=== PATIENT | female | born 1960 | race Caucasian/White ===

== ENCOUNTER → 2020-09-28 16:03 | Outpatient (CLI) | payer OTHER, MEDICAID, SELFPAY ==
--- NOTE | 2020-09-28 | DI.MG.S_ITS ---
BILATERAL DIGITAL SCREENING MAMMOGRAM 3D/2D WITH CAD: 09/28/2020 CLINICAL: Routine screening. Family history of breast cancer. Comparison is made to exams dated: 08/07/2017 mammogram, 03/27/2016 mammogram, and 11/24/2014 mammogram - [facility]. The tissue of both breasts is heterogeneously dense. This may lower the sensitivity of mammography. Current study was also evaluated with a Computer Aided Detection (CAD) system. There is a possible new architectural distortion in the right breast at 11 o'clock posterior depth. There also is an oval asymmetry with an obscured and circumscribed margin in the right breast middle depth superior region seen on the mediolateral oblique view only. Additionally, there is an oval asymmetry with an obscured margin in the right breast posterior depth superior region seen on the mediolateral oblique view only. No other significant masses, calcifications, or other findings are seen in either breast. IMPRESSION: INCOMPLETE: NEEDS ADDITIONAL IMAGING EVALUATION The possible new architectural distortion in the right breast at 11 o'clock posterior depth is indeterminate. The oval asymmetry in the right breast middle depth superior region seen on the mediolateral oblique view only is indeterminate. The oval asymmetry in the right breast posterior depth superior region seen on the mediolateral oblique view only resembles a lymph node and is indeterminate. Additional views with possible ultrasound are recommended. This exam was interpreted at Station ID: [id number]. NOTE: For mammograms, a report in lay terms will be sent to the patient. Approximately 15% of breast malignancies will not be visualized mammographically. In the management of a palpable breast mass, a negative mammogram must not discourage biopsy of a clinically suspicious lesion. Electronically Signed By: Ilene christensen/:09/28/2020 16:50:23 letter sent: Additional Imaging Needed ACR BI-RADS Category 0: Incomplete 3340F
== END ==
PROVIDERS: Referring Provider Family Medicine; Visit Provider Family Medicine
DX: Z12.31 Encounter for screening mammogram for malignant neoplasm of breast (principal); Z80.3 Family history of malignant neoplasm of breast
CPT/HCPCS: 77063; 77067

== ENCOUNTER → 2020-10-16 14:14 | Outpatient (CLI) | payer OTHER, MEDICAID, SELFPAY ==
--- NOTE | 2020-10-16 | DI.US.S_ITS ---
LIMITED ULTRASOUND OF RIGHT BREAST: 10/16/2020 CLINICAL: Patient returns today to evaluate focal asymmetries in the right breast. Comparison is made to exams dated: 10/16/2020 mammogram, 09/28/2020 mammogram, 08/07/2017 mammogram, 03/27/2016 mammogram, 11/24/2014 mammogram, and 07/16/2011 mammogram - [facility]. Color flow and real-time ultrasound of the right breast upper outer quadrant were performed on the areas of interest. There is an irregular area of probable fibroglandular tissue with indistinct margins in the right breast at 11 o'clock posterior depth. This irregular area of fibroglandular tissue is of mixed echogenicity. Color flow imaging demonstrates that there is no increase in vascularity. Elsewhere no discrete cystic or solid mass is identified in the upper outer quadrant of the right breast to correlate with patient's mammographic findings. IMPRESSION: PROBABLY BENIGN The irregular area of probable fibroglandular tissue in the right breast is probably benign. Follow-up mammogram and ultrasound in 6 months are recommended. A follow-up mammogram and possible ultrasound in 6 months are recommended to demonstrate stability of the mammographic findings. This exam was interpreted at Station ID: [id number]. Electronically Signed By: Zeke hathaway/:10/18/2020 08:03:11 letter sent: Followup Recommended Ultrasound BI-RADS: 3 Probably benign
--- NOTE | 2020-10-16 | DI.MG.S_ITS ---
UNILATERAL RIGHT DIGITAL DIAGNOSTIC MAMMOGRAM 3D/2D WITH ADDITIONAL VIEWS: 10/16/2020 CLINICAL: Additional evaluation requested from prior study. Comparison is made to exams dated: 09/28/2020 mammogram, 08/07/2017 mammogram, and 03/27/2016 mammogram - [facility]. The tissue of right breast is heterogeneously dense. This may lower the sensitivity of mammography. There is irregular equal density architectural distortion with an indistinct margin in the right breast at 11 o'clock posterior depth. This is less prominent. There also is an oval equal density asymmetry with an indistinct and circumscribed margin in the right breast posterior depth superior region seen on the mediolateral oblique view only. This is less prominent. Additionally, there is an oval equal density asymmetry with an indistinct and circumscribed margin in the right breast posterior depth superior region seen on the mediolateral oblique view only. This is less prominent. No other significant masses or calcifications are seen in the breast. IMPRESSION: INCOMPLETE: NEEDS ADDITIONAL IMAGING EVALUATION The irregular equal density architectural distortion in the right breast at 11 o'clock posterior depth is indeterminate. An ultrasound is recommended. The oval equal density asymmetry in the right breast posterior depth superior region seen on the mediolateral oblique view only is indeterminate. An ultrasound is recommended. The oval equal density asymmetry in the right breast posterior depth superior region seen on the mediolateral oblique view only is indeterminate. An ultrasound is recommended. Ultrasound will be performed immediately following the current exam. This exam was interpreted at Station ID: [id number]. NOTE: For mammograms, a report in lay terms will be sent to the patient. Approximately 15% of breast malignancies will not be visualized mammographically. In the management of a palpable breast mass, a negative mammogram must not discourage biopsy of a clinically suspicious lesion. Electronically Signed By: Zeke Kelly M.D. ddp/:10/16/2020 14:56:30 ACR BI-RADS Category 0: Incomplete 3340F
== END ==
PROVIDERS: PCP Family Medicine; Referring Provider Family Medicine; Visit Provider Family Medicine
DX: R92.8 Other abnormal and inconclusive findings on diagnostic imaging of breast (principal); N64.89 Other specified disorders of breast
CPT/HCPCS: 76642; 77065; G0279

== ENCOUNTER → 2021-04-19 09:32 | Outpatient (CLI) | payer OTHER, MEDICAID, SELFPAY ==
--- NOTE | 2021-04-19 09:33 | DI.MG.S_ITS ---
UNILATERAL RIGHT DIGITAL DIAGNOSTIC MAMMOGRAM 3D/2D SHORT-TERM FOLLOW-UP: 04/19/2021 CLINICAL: Short term follow up of the right breast. Comparison is made to exams dated: 10/16/2020 mammogram, 10/16/2020 ultrasound, 09/28/2020 mammogram, and 08/07/2017 mammogram - [facility]. The tissue of right breast is heterogeneously dense. This may lower the sensitivity of mammography. Prior area of architectural distortion is no longer seen in the right breast at 11 o'clock. There is a 1.4 cm equal density asymmetry in the right breast at 10 o'clock posterior depth. This is seen in additional views. This is more prominent. There also is a 1.1 cm oval asymmetry in the right breast posterior depth lateral region seen on the craniocaudal view only. This is seen in additional views. This is more prominent. No other significant masses or calcifications are seen in the breast. IMPRESSION: INCOMPLETE: NEEDS ADDITIONAL IMAGING EVALUATION The 1.4 cm equal density asymmetry in the right breast at 10 o'clock posterior depth is indeterminate. An ultrasound is recommended. The 1.1 cm oval asymmetry in the right breast posterior depth lateral region seen on the craniocaudal view only is indeterminate. An ultrasound is recommended. Resolution of architectural distortion on prior screening mammography with additional views. Ultrasound evaluation to confirm resolution is recommended and was performed immediately following this exam. This exam was interpreted at Station ID: [id number]. NOTE: For mammograms, a report in lay terms will be sent to the patient. Approximately 15% of breast malignancies will not be visualized mammographically. In the management of a palpable breast mass, a negative mammogram must not discourage biopsy of a clinically suspicious lesion. Electronically Signed By: Ilene christensen/:04/19/2021 10:10:55 ACR BI-RADS Category 0: Incomplete 3340F
--- NOTE | 2021-04-19 09:33 | DI.US.S_ITS ---
LIMITED ULTRASOUND OF RIGHT BREAST: 04/19/2021 CLINICAL: Patient returns for a 6 month follow up of the right breast. Comparison is made to exams dated: 04/19/2021 mammogram, 10/16/2020 ultrasound, 10/16/2020 mammogram, 09/28/2020 mammogram, 08/07/2017 mammogram, and 03/27/2016 mammogram - [facility]. Ultrasound of the right breast 10-11 o'clock region was performed. There are at least two oval areas of benign fibroglandular tissue in the right axillary tail. These correlate in size and shape with mammography findings. Color flow imaging demonstrates that there is no vascularity present. No finding to correspond to the patient's resolved mammographic abnormality of architectural distortion. IMPRESSION: BENIGN The multiple oval areas of fibroglandular tissue are benign. There is no abnormality seen in the right breast to correspond with the architectural distortion at 11 o'clock which is consistent with fibrosis. A follow-up right mammogram in 6 months is recommended to demonstrate stability of the tissue pattern.. Findings and recommendations were conveyed to the patient at time of exam. This exam was interpreted at Station ID: [id number]. Electronically Signed By: Ilene christensen/:04/19/2021 11:34:42 letter sent: Followup Recommended Ultrasound BI-RADS: 2 Benign
== END ==
PROVIDERS: PCP Physician Assistant Medical; Referring Provider Obstetrics & Gynecology; Visit Provider Obstetrics & Gynecology
DX: R92.8 Other abnormal and inconclusive findings on diagnostic imaging of breast (principal); N64.89 Other specified disorders of breast
CPT/HCPCS: 76642; 77065; G0279

== ENCOUNTER → 2021-10-23 08:43 | Outpatient (CLI) | payer OTHER, MEDICAID, SELFPAY ==
[2021-10-23 19:52] LABS: Alanine Aminotransferase 15 IU/L (<35); Albumin 4.2 g/dL (3.5-5.0); Albumin Globulin Ratio 1.6 (1.0-2.8); Alkaline Phosphatase 74 U/L (38-126); Aspartate Aminotransferase 32 IU/L (14-36); BUN Creatinine Ratio 15.9 (6-22); Bilirubin Total 0.8 mg/dL (0.2-1.3); Blood Urea Nitrogen 10 mg/dL (7-17); C-Reactive Protein Quant < 0.5 mg/dL (<1.0); Calcium 9.2 mg/dL (8.4-10.2); Carbon Dioxide 26 mmol/L (22-32); Chloride 108 mmol/L (98-107); Cholesterol 218 mg/dL (140-199); Estimated Glomerular Filt Rate > 60 mL/min (>60); Globulin 2.7 g/dL (1.7-4.1); Glucose 91 mg/dL (80-110); HDL Cholesterol 93 mg/dL (40-60); HEMOLYSIS < 15 (0-50); LDL Cholesterol Calculated 111 mg/dL (<100); Potassium 4.1 mmol/L (3.4-5.1); Sodium 139 mmol/L (137-145); Total Protein 6.9 g/dL (6.3-8.2); Triglycerides 68 mg/dL (35-150)
[2021-10-23 19:57] LABS: Add Manual Diff / Slide Review NO; Basophils Absolute Auto 0 /uL (0-100); Basophils Percent Auto 0.8 % (0-2); Eosinophils Absolute Auto 200 /uL (0-450); Eosinophils Percent Auto 4.1 % (2-4); Hematocrit 39.5 % (36-46); Hemoglobin 13.2 g/dL (12.0-16.0); Lymphocytes Absolute Auto 1500 /uL (1100-4500); Lymphocytes Percent Auto 37.5 % (25-40); Mean Corpuscular HGB Conc 33.3 % (30-36); Mean Corpuscular Hemoglobin 30.8 PG (26-34); Mean Corpuscular Volume 92.4 fL (80-100); Monocytes Absolute Auto 400 /uL (0-900); Monocytes Percent Auto 9.9 % (3-14); Neutrophils Absolute Auto 1800 /uL (1500-7000); Neutrophils Percent Auto 47.7 % (50-75); Platelet Count 227 X10^3/uL (150-400); Red Blood Cell Count 4.28 X10^6/uL (4.0-5.2); Red Cell Distribution Width 13.3 % (11.6-14.8); White Blood Cell Count 3.9 X10^3/uL (4.5-11.0)
[2021-10-23 20:31] LABS: TSH w/ Reflex to FT4 2.86 uIU/mL (0.47-4.68)
[2021-10-23 20:35] LABS: Erythrocyte Sedimentation Rate 5 MM/HR (0-20)
== END ==
PROVIDERS: PCP Physician Assistant Medical; Visit Provider Physician Assistant Medical
DX: M79.641 Pain in right hand (principal); M79.642 Pain in left hand; Z11.51 Encounter for screening for human papillomavirus (HPV); Z12.11 Encounter for screening for malignant neoplasm of colon; Z12.4 Encounter for screening for malignant neoplasm of cervix; Z12.39 Encounter for other screening for malignant neoplasm of breast
CPT/HCPCS: 80053; 80061; 84443; 85025; 85651; 86140

== ENCOUNTER → 2021-10-29 13:49 | Outpatient (CLI) | payer OTHER, MEDICAID, SELFPAY ==
[2021-10-30 06:17] LABS: Fecal Immunochemical Test Negative (Negative)
== END ==
PROVIDERS: PCP Physician Assistant Medical; Visit Provider Physician Assistant Medical
DX: Z11.51 Encounter for screening for human papillomavirus (HPV) (principal); Z12.11 Encounter for screening for malignant neoplasm of colon; Z12.39 Encounter for other screening for malignant neoplasm of breast; Z12.4 Encounter for screening for malignant neoplasm of cervix
CPT/HCPCS: 82274

== ENCOUNTER → 2022-01-01 10:10 | Outpatient (CLI) | payer OTHER, MEDICAID, SELFPAY ==
--- NOTE | 2022-01-01 10:18 | DI.MG.S_ITS ---
BILATERAL DIGITAL DIAGNOSTIC MAMMOGRAM 3D/2D SHORT-TERM FOLLOW-UP: 01/01/2022 CLINICAL: Short term follow up of the right breast, due for bilateral imaging. Comparison is made to exams dated: 04/19/2021 mammogram, 10/16/2020 mammogram, and 09/28/2020 mammogram - [facility]. The tissue of both breasts is heterogeneously dense. This may lower the sensitivity of mammography. There is a cluster of round equal density asymmetries in the right breast at 10 o'clock posterior depth. This is not significantly changed and was not seen on the prior ultrasound. There also is possible architectural distortion in the right breast at 11 o'clock posterior depth. This is less prominent. No other significant masses, calcifications, or other findings are seen in either breast. IMPRESSION: PROBABLY BENIGN The cluster of round equal density asymmetries in the right breast at 10 o'clock posterior depth is stable and is probably benign. The possible architectural distortion in the right breast at 11 o'clock posterior depth has become less prominent and previously had no sonographic correlate. It is probably benign. A follow-up right mammogram in 6 months is recommended to demonstrate continued stability. Based on Tyrer-Cuzick model (a risk assessment model), the patient's lifetime risk is 21.0% and her 10 year risk is 8.9%. If a patient has an elevated risk, a more comprehensive evaluation should be considered and/or a referral to a genetic counselor. The [place] [employer], [employer], and NCCN Guidelines advise the consideration of Breast MRI as an adjunct to screening mammography in patients whose Lifetime risk to develop breast cancer is 20% or higher. This exam was interpreted at Station ID: [id number]. NOTE: For mammograms, a report in lay terms will be sent to the patient. Approximately 15% of breast malignancies will not be visualized mammographically. In the management of a palpable breast mass, a negative mammogram must not discourage biopsy of a clinically suspicious lesion. Electronically Signed By: Ilene christensen/:01/01/2022 14:30:58 letter sent: Followup Recommended ACR BI-RADS Category 3: Probably benign [id number]
== END ==
PROVIDERS: PCP Physician Assistant Medical; Referring Provider Physician Assistant Medical; Visit Provider Physician Assistant Medical
DX: R92.8 Other abnormal and inconclusive findings on diagnostic imaging of breast (principal); N64.89 Other specified disorders of breast
CPT/HCPCS: 77066; G0279

== ENCOUNTER → 2022-10-31 09:16 | Outpatient (CLI) | payer OTHER, MEDICAID, SELFPAY ==
--- NOTE | 2022-10-31 09:18 | DI.MG.S_ITS ---
BILATERAL DIGITAL DIAGNOSTIC MAMMOGRAM 3D/2D: 10/31/2022 CLINICAL: Patient returns for a 6 month follow up of the right breast, due for bilateral exam. Comparison is made to exams dated: 01/01/2022 mammogram, 09/28/2020 mammogram, and 08/07/2017 mammogram - [facility]. Both breasts are heterogeneously dense, which may obscure small masses (category c / 51-75% glandular tissue). There is a cluster of round equal density asymmetries in the right breast at 10 o'clock posterior depth. This is not significantly changed and was not seen on the prior ultrasound. The possible architectural distortion in the right breast at 11 o'clock posterior depth is no longer seen and most likely is fibroglandular tissue. This was not seen on the prior ultrasound. No other significant masses, calcifications, or other findings are seen in either breast. IMPRESSION: BENIGN Previously described findings have demonstrated two years of stability and is consistent with a benign process. There is no mammographic evidence of malignancy. A 1 year screening mammogram is recommended. Findings and recommendations were conveyed to the patient during today's evaluation. Based on Tyrer-Cuzick model (a risk assessment model), the patient's lifetime risk is 20.5% and her 10 year risk is 9.0%. If a patient has an elevated risk, a more comprehensive evaluation should be considered and/or a referral to a genetic counselor. The [place] [employer], [employer] [place], and NCCN Guidelines advise the consideration of Breast MRI as an adjunct to screening mammography in patients whose Lifetime risk to develop breast cancer is 20% or higher. This exam was interpreted at Station ID: [id number]. NOTE: For mammograms, a report in lay terms will be sent to the patient. Approximately 15% of breast malignancies will not be visualized mammographically. In the management of a palpable breast mass, a negative mammogram must not discourage biopsy of a clinically suspicious lesion. Electronically Signed By: Roland Perez M.D. aty/:10/31/2022 11:38:17 letter sent: Normal Exam ACR BI-RADS Category 2: Benign Finding(s) 3342F
== END ==
PROVIDERS: PCP Physician Assistant Medical; Referring Provider Physician Assistant Medical; Visit Provider Physician Assistant Medical
DX: R92.8 Other abnormal and inconclusive findings on diagnostic imaging of breast (principal)
CPT/HCPCS: 77066; G0279

== ENCOUNTER → 2022-11-05 08:33 | Outpatient (CLI) | payer OTHER, MEDICAID, SELFPAY ==
[2022-11-05 19:58] LABS: Add Manual Diff / Slide Review NO; Basophils Absolute Auto 0 /uL (0-100); Basophils Percent Auto 1.1 % (0-2); Eosinophils Absolute Auto 100 /uL (0-450); Eosinophils Percent Auto 2.9 % (2-4); Hematocrit 40.7 % (36-46); Hemoglobin 13.7 g/dL (12.0-16.0); Lymphocytes Absolute Auto 1500 /uL (1100-4500); Lymphocytes Percent Auto 43.2 % (25-40); Mean Corpuscular HGB Conc 33.8 % (30-36); Mean Corpuscular Hemoglobin 30.9 PG (26-34); Mean Corpuscular Volume 91.4 fL (80-100); Monocytes Absolute Auto 400 /uL (0-900); Monocytes Percent Auto 11.5 % (3-14); Neutrophils Absolute Auto 1400 /uL (1500-7000); Neutrophils Percent Auto 41.3 % (50-75); Platelet Count 228 X10^3/uL (150-400); Red Blood Cell Count 4.45 X10^6/uL (4.0-5.2); Red Cell Distribution Width 13.3 % (11.6-14.8); White Blood Cell Count 3.4 X10^3/uL (4.5-11.0)
[2022-11-05 20:00] LABS: Alanine Aminotransferase 18 IU/L (<35); Albumin 4.2 g/dL (3.5-5.0); Albumin Globulin Ratio 1.5 (1.0-2.8); Alkaline Phosphatase 76 U/L (38-126); Aspartate Aminotransferase 30 IU/L (14-36); Bilirubin Total 0.8 mg/dL (0.2-1.3); Blood Urea Nitrogen 11 mg/dL (7-17); Calcium 9.2 mg/dL (8.4-10.2); Carbon Dioxide 27 mmol/L (22-32); Chloride 103 mmol/L (98-107); Cholesterol 220 mg/dL (140-199); Estimated Glomerular Filt Rate > 60 mL/min (>60); Globulin 2.8 g/dL (1.7-4.1); Glucose 93 mg/dL (80-110); HDL Cholesterol 89 mg/dL (40-60); HEMOLYSIS < 15 (0-50); LDL Cholesterol Calculated 121 mg/dL (<100); Potassium 4.3 mmol/L (3.4-5.1); Sodium 137 mmol/L (137-145); Triglycerides 48 mg/dL (35-150)
[2022-11-05 20:29] LABS: TSH w/ Reflex to FT4 2.33 uIU/mL (0.47-4.68)
== END ==
PROVIDERS: PCP Physician Assistant Medical; Visit Provider Physician Assistant Medical
DX: Z12.11 Encounter for screening for malignant neoplasm of colon (principal); Z12.12 Encounter for screening for malignant neoplasm of rectum; Z13.29 Encounter for screening for other suspected endocrine disorder
CPT/HCPCS: 80053; 80061; 84443; 85025

== ENCOUNTER → 2022-11-17 09:07 | Outpatient (CLI) | payer OTHER, MEDICAID, SELFPAY ==
[2022-11-19 13:39] LABS: Fecal Immunochemical Test Negative (Negative)
== END ==
PROVIDERS: PCP Physician Assistant Medical; Visit Provider Physician Assistant Medical
DX: Z12.11 Encounter for screening for malignant neoplasm of colon (principal); Z12.12 Encounter for screening for malignant neoplasm of rectum; Z13.29 Encounter for screening for other suspected endocrine disorder
CPT/HCPCS: 82274

== ENCOUNTER 2022-12-26 11:28 | Day surgery (SDC) | payer OTHER, MEDICAID, SELFPAY ==
--- NOTE | 2022-12-26 | PATH_ITS ---
[facility] Accession Number: [id number] No. of containers..01 Tissue . 01 Material submitted: . cecum - CECAL POLYP . 01 Diagnosis: Cecum, Polyp: Sessile serrated adenoma. MRV 01/01/2023 1557 Local . 01 Electronically signed: . Sarah Carreon MD, Pathologist NPI- [id number] . 01 Gross description: . Received in formalin labeled with the patient's name and cecal polyp, and consists of two 0.2 cm biopsies, submitted entirely in A1. ([id number]) /VAMSI 12/30/2022 1158 Local . 01 Pathologist provided ICD-10: D12.0 . 01 CPT . 265295 Specimen Comment: A courtesy copy of this report has been sent to [facility] Performed at: 01 [facility] [address] [place] [address], [place], [place] [id number] MD Zeke Ken MD Phone: [phone]
[2022-12-26 11:43] VITALS: BP 108/67; PULSE 70; RESP 17; TEMP 36.7; O2SAT 100; BMI 22.4
[2022-12-26] MEDS: LACTATED RINGERS 1,000 ML 125 ML IV (11:53)
--- NOTE | 2022-12-26 14:22 | PM.HP.1 ---
History of Present Illness History of Present Illness Date Patient Seen: 12/26/22 Time Patient Seen: 14:22 Chief complaint: Screening Colonoscopy Narrative: 62-year-old female presenting for her 2nd screening colonoscopy. Her 1st 1 was about 10 years ago was done here at [facility] to her recollection there were no polyps. She has no family history of colon cancer in no concerning symptoms. [facility] Medical History (Updated 11/26/22 @ 16:28 by Sarah Sinclair PA-C) Herpes zoster without complication Screening for breast cancer Family History (Updated 11/15/15 @ 00:00 by Conversion Provider) Brother Age: 57 Overweight Father Age: 82 Heart disease Hypertension High cholesterol Mother Age: 81 Sciatica Social History household members: significant other Smoking Status: Former smoker alcohol intake: current Meds Home Medications and Allergies Home Medications Medication Instructions Recorded Confirmed Type metronidazole 0.75 % topical gel 0.75 % topical BID #45 mL 02/13/16 12/26/22 Rx scopolamine base 1 mg over 3 days 1 patch transdermal Q72H #6 patches 10/09/21 12/26/22 Rx transdermal patch (Transderm-Scop) Allergies Allergy/AdvReac Type Severity Reaction Status Date / Time No Known Drug Allergies Allergy Verified 11/05/22 08:23 Exam Vital Signs (past 8 hours): - 12/26/22 11:43 Temperature 98.1 F Pulse Rate 70 Respiratory Rate 17 Blood Pressure 108/67 Pulse Oximetry 100 Oxygen Delivery Method Room Air Oxygen Delivery Method Room Air Const General: cooperative, healthy appearing and comfortable Nutritional Appearance: thin HENMT Head: normal to inspection Eyes General: appearance normal, both eyes and all related structures Resp Effort & Inspection: normal respiratory effort and able to speak in complete sentences GI Palpation: soft and No tender Assessment & Plan Assessment and plan (1) Screening for colorectal cancer: Status: Acute Assessment & Plan narrative: Presents today for screening colonoscopy I discussed the risks benefits and alternatives including but not limited to perforation of the colon and an incomplete exam she fully understands these risks and would like to proceed.
[2022-12-26 15:20] VITALS: BP 102/62; PULSE 78; RESP 20; TEMP 36.4; O2SAT 100
[2022-12-26 15:25] VITALS: BP 108/63; PULSE 74; RESP 22; O2SAT 99
[2022-12-26 15:29] VITALS: BP 102/72; PULSE 66; RESP 20; O2SAT 99
[2022-12-26 15:30] VITALS: BP 102/72; PULSE 64; RESP 17; O2SAT 100
--- NOTE | 2022-12-26 16:06 | P.OP.COLON_ITS ---
Operative Date/Time/Diagnoses Date of procedure: 12/26/22 Time of procedure: 16:06 Pre-op diagnosis: Screening for colon cancer, no family history average risk Post-op diagnosis: same Procedure & Clinicians Study performed: Colonoscopy and biopsy Same procedure as scheduled: Yes Indications: Screening for colon cancer Surgeon: Angy Cruz Procedure Notes Procedure in detail: Patient was taken to the endoscopy suite and placed in a left lateral decubitus position. A time-out was performed. With the help of anesthesiologist conscious sedation was induced and monitored throughout the case. A digital rectal exam was performed and there were no masses or strictures. The colonoscope was introduced into the anal canal and advanced through to the cecum. A photograph of the appendiceal orifice was obtained. There was a small cecal polyp which was removed with the biopsy forceps and sent for pathology. The bowel prep was good [place] bowel prep score of 2. The scope was then withdrawn for a total of 10 minutes. The scope was then retroflexed and a photograph of normal internal hemorrhoidal piles was obtained. Specimen(s): other (Cecal polyp) Post-procedure Plan for aftercare: 7-10 year follow-up depending on pathology of small polyps seen. I always recommend fiber supplementation for any patient with polyps.
== END 2022-12-26 15:42 | disposition home or self-care (01) ==
PROVIDERS: PCP Physician Assistant Medical; Referring Provider Surgery; Visit Provider Surgery
PROC: 0DJD8ZZ Inspection of Lower Intestinal Tract, Via Natural or Artificial Opening Endoscopic (ICD-10-PCS; CPT 45378; principal; 2022-12-26 11:45)
DX: Z12.11 Encounter for screening for malignant neoplasm of colon (principal); D12.0 Benign neoplasm of cecum
CPT/HCPCS: 45380; J2704

== ENCOUNTER → 2024-03-24 11:10 | Outpatient (CLI) | payer OTHER, MEDICAID, SELFPAY ==
--- NOTE | 2024-03-24 11:11 | DI.MG.S_ITS ---
BILATERAL DIGITAL SCREENING MAMMOGRAM 3D/2D WITH CAD: 03/24/2024 CLINICAL: Routine screening. Family history of breast cancer. Comparison is made to exams dated: 10/31/2022 mammogram, 01/01/2022 mammogram, and 09/28/2020 mammogram - [facility]. The breasts are heterogeneously dense, which may obscure small masses (category c / 51-75% glandular tissue). Current study was also evaluated with a Computer Aided Detection (CAD) system. No significant masses, calcifications, or other findings are seen in either breast. There has been no significant interval change. IMPRESSION: NEGATIVE There is no mammographic evidence of malignancy. A 1 year screening mammogram is recommended. Based on Tyrer-Cuzick model (a risk assessment model), the patient's lifetime risk is 20.0% and her 10 year risk is 9.0%. If a patient has an elevated risk, a more comprehensive evaluation should be considered and/or a referral to a genetic counselor. The [place] [employer], [employer] [place], and NCCN Guidelines advise the consideration of Breast MRI as an adjunct to screening mammography in patients whose Lifetime risk to develop breast cancer is 20% or higher. This exam was interpreted at Station ID: [id number]. NOTE: For mammograms, a report in lay terms will be sent to the patient. Approximately 15% of breast malignancies will not be visualized mammographically. In the management of a palpable breast mass, a negative mammogram must not discourage biopsy of a clinically suspicious lesion. Electronically Signed By: Roland newton/nicol:03/25/2024 20:47:17 letter sent: Normal Exam ACR BI-RADS Category 1: Negative
== END ==
PROVIDERS: PCP Physician Assistant Medical; Referring Provider Physician Assistant Medical; Visit Provider Physician Assistant Medical
DX: Z12.31 Encounter for screening mammogram for malignant neoplasm of breast (principal); Z80.3 Family history of malignant neoplasm of breast; R92.333 Mammographic heterogeneous density, bilateral breasts
CPT/HCPCS: 77063; 77067

== ENCOUNTER → 2024-05-24 10:39 | Outpatient (CLI) | payer BC, SELFPAY ==
[2024-05-24 19:28] LABS: Hematocrit 39.8 % (36-46); Hemoglobin 13.2 g/dL (12.0-16.0); Mean Corpuscular HGB Conc 33.2 % (30-36); Mean Corpuscular Hemoglobin 30.6 PG (26-34); Mean Corpuscular Volume 92.1 fL (80-100); Platelet Count 231 X10^3/uL (150-400); Red Blood Cell Count 4.32 X10^6/uL (4.0-5.2); White Blood Cell Count 4.1 X10^3/uL (4.5-11.0)
[2024-05-24 19:38] LABS: Alanine Aminotransferase 19 IU/L (<35); Albumin 4.1 g/dL (3.5-5.0); Albumin Globulin Ratio 1.6 (1.0-2.8); Alkaline Phosphatase 80 U/L (38-126); Aspartate Aminotransferase 36 IU/L (14-36); BUN Creatinine Ratio 15.2 (6-22); Bilirubin Total 0.6 mg/dL (0.2-1.3); Blood Urea Nitrogen 10 mg/dL (7-17); C-Reactive Protein Quant 0.5 mg/dL (<1.0); Calcium 9.5 mg/dL (8.4-10.2); Carbon Dioxide 26 mmol/L (22-32); Chloride 106 mmol/L (98-107); Cholesterol 228 mg/dL (140-199); Estimated Glomerular Filt Rate > 60 mL/min (>60); Globulin 2.5 g/dL (1.7-4.1); Glucose 86 mg/dL (80-110); HDL Cholesterol 81 mg/dL (40-60); HEMOLYSIS < 15 (0-50); LDL Cholesterol Calculated 135 mg/dL (<100); Potassium 4.2 mmol/L (3.4-5.1); Sodium 137 mmol/L (137-145); Total Protein 6.6 g/dL (6.3-8.2); Triglycerides 61 mg/dL (35-150); Uric Acid 3.5 mg/dL (2.5-6.2)
[2024-05-24 19:48] LABS: Rheumatoid Factor < 8.6 IU/mL (<12.0)
[2024-05-24 20:05] LABS: TSH w/ Reflex to FT4 1.97 uIU/mL (0.47-4.68)
[2024-05-24 21:01] LABS: Erythrocyte Sedimentation Rate 5 MM/HR (0-20)
[2024-05-27 13:36] LABS: ANA Screen, IFA Negative (.)
== END ==
PROVIDERS: PCP Physician Assistant Medical; Visit Provider Physician Assistant Medical
DX: Z13.29 Encounter for screening for other suspected endocrine disorder (principal); Z13.6 Encounter for screening for cardiovascular disorders; M79.641 Pain in right hand; M79.642 Pain in left hand; B00.9 Herpesviral infection, unspecified; R79.89 Other specified abnormal findings of blood chemistry
CPT/HCPCS: 80053; 80061; 84443; 84550; 85027; 85651; 86038; 86140; 86430

== ENCOUNTER → 2025-03-29 11:47 | Outpatient (CLI) | payer BC, SELFPAY ==
--- NOTE | 2025-03-29 11:50 | DI.MG.S_ITS ---
MM screening mammo BI: 03/29/2025. BI-RADS: 1 CLINICAL: 64-year old female for bilateral screening mammogram. Tyrer-Cuzick lifetime risk of 12.8%. No personal or first-degree family history of breast cancer. Current reported family history of breast cancer: maternal grandmother. PRIOR EXAMS 03/24/2024, 10/31/2022, 01/01/2022, 04/19/2021. MAMMOGRAPHY TECHNIQUE: 2D and 3D (tomosynthesis) digital mammographic views obtained, with additional images as needed for full coverage. Current study was also evaluated with a Computer Aided Detection (CAD) system. DENSITY C. The breasts are heterogeneously dense, which may obscure small masses. MAMMOGRAPHY FINDINGS Bilateral: No suspicious mass, asymmetry, microcalcification, or other abnormality seen. IMPRESSION: * No evidence of malignancy. RECOMMENDATIONS Bilateral * Annual screening mammography. OVERALL ASSESSMENT CATEGORY BI-RADS-1: Negative. The [employer] [employer] recommends annual screening mammography beginning at age 40 for women with average risk of breast cancer. ELECTRONICALLY SIGNED: Tashia Soto M.D. on 03/29/2025 at 03:35:23 PM PT Interpreting Station ID: [id number]
== END ==
LOC: MAMMO 11:48
PROVIDERS: PCP Physician Assistant Medical; Referring Provider Physician Assistant Medical; Visit Provider Physician Assistant Medical
DX: Z12.31 Encounter for screening mammogram for malignant neoplasm of breast (principal); R92.333 Mammographic heterogeneous density, bilateral breasts; Z80.3 Family history of malignant neoplasm of breast
CPT/HCPCS: 77063; 77067